=== PATIENT | male | born 1955 | race Caucasian/White ===

== ENCOUNTER 2023-05-07 15:26 | Emergency (ER) | payer BC ==
[2023-05-07 16:45] VITALS: BP 107/76; PULSE 80
[2023-05-07] MEDS: Bacitracin Oint 1 GM U/D Packet TOP ONE (16:49)
== END 2023-05-07 21:17 | disposition home or self-care (01) ==
LOC: LB.ED 15:26
DX: S06.5X9A Traumatic subdural hemorrhage with loss of consciousness of unspecified duration, initial encounter (principal); S01.01XA Laceration without foreign body of scalp, initial encounter; J44.9 Chronic obstructive pulmonary disease, unspecified; F10.920 Alcohol use, unspecified with intoxication, uncomplicated; F17.210 Nicotine dependence, cigarettes, uncomplicated; Z88.8 Allergy status to other drugs, medicaments and biological substances; Z79.899 Other long term (current) drug therapy; W00.9XXA Unspecified fall due to ice and snow, initial encounter; Y93.01 Activity, walking, marching and hiking
CPT/HCPCS: 12002; 12004; 70450; 99283; 99284

== ENCOUNTER 2024-12-13 12:34 | Day surgery (SDC) | payer BC ==
[2024-12-13] MEDS ORDERED: Propofol 200 MG/20 ML SDV ONE (14:00)
[2024-12-13 14:31] VITALS: BP 136/80; PULSE 64
== END 2024-12-13 15:25 | disposition home or self-care (01) ==
LOC: LB.SDS 12:34
PROVIDERS: ATTEND Surgery
DX: Z12.11 Encounter for screening for malignant neoplasm of colon (principal); D12.4 Benign neoplasm of descending colon; E78.2 Mixed hyperlipidemia; E66.811 Obesity, class 1; F17.210 Nicotine dependence, cigarettes, uncomplicated; Z88.8 Allergy status to other drugs, medicaments and biological substances; Z68.32 Body mass index [BMI] 32.0-32.9, adult; Z79.899 Other long term (current) drug therapy
CPT/HCPCS: 45380; J2704; J7030; 88305